=== PATIENT | male | born 1985 | race Two or more races ===

== ENCOUNTER 2023-04-07 14:28 | Outpatient (AMB) | payer OTHER, SELFPAY ==
--- NOTE | 2023-04-07 14:30 | MHC.OFFWIV ---
Intake Vital Signs 04/07/23 14:38 BMI Reason not done Patient refused/unable BP 122/76 Blood Pressure Location Lt brachial Position Sitting Pulse 74 Pulse Source Pulse Oximeter Temp 97.9 F Temp Source Temporal Artery Scan Pulse Oximetry (%) 98 Intake Visit Reasons: EP STD testing Intake Note: pt is here for c.o std screening Patient Tobacco Use Status: Never used Tobacco Allergies shellfish derived Allergy (Mild, Verified 04/07/23 14:38) Hives Do you need a note to return to daycare/school/sports/work: No HPI HPI Comments History of Present Illness Details This is a 37-year-old male who presented to the walk-in clinic requesting STD testing. Patient states he had exposure to a sexual partner who tested positive for chlamydia. Patient denies any symptoms including dysuria, penile discharge, testicular pain/swelling. PFSH Social History Patient Tobacco Use Status: Never used Tobacco Review of Systems Const All systems reviewed & are unremarkable except as noted in HPI and below Reports no additional complaints Eyes Reports no additional complaints ENT Reports no additional complaints Card Reports no additional complaints Resp Reports no additional complaints GI Reports no additional complaints Reports no additional complaints Musc Reports no additional complaints Skin/Breast Reports system reviewed and no additional complaints, except as documented Neuro Reports no additional complaints Psych Reports no additional complaints Endo Reports no additional complaints Heladio/Lymph Reports no additional complaints Aller/Immun Reports no additional complaints Physical Exam Const Other: Vital signs reviewed. Constitutional: Non-toxic appearing. No acute distress. Well-developed and well-nourished. HEENT: Normocephalic and atraumatic. Skin: Warm and dry. No rashes or lesions noted. Neck: Full and painless range of motion. No cervical lymphadenopathy. Cardio: Regular rate. No lower extremity edema. No JVD. Pulmonary: No respiratory distress. No accessory muscle usage. Gastrointestinal: Soft, nontender, and nondistended in all 4 quadrants. Musculoskeletal: Normal range of motion in joints throughout the body. No deformity or other signs of injury. Neuro: Alert and oriented x4. Cranial nerves 2-12 grossly intact. No focal deficits appreciated. Psych: Normal mood and affect. Assessment & Plan Assessment & Plan (1) Screen for STD (sexually transmitted disease): Code(s): Z11.3 - Encounter for screening for infections with a predominantly sexual mode of transmission Plan: This is a 37-year-old male who presented to the walk-in clinic requesting STD testing. Patient states he had known exposure to chlamydia with his most recent sexual partner. Patient sent a dirty urine for CT/NG testing. However, I will empirically treat patient with p.o. doxycycline mg twice daily x7 days given known/confirmed exposure to chlamydia. Patient was made aware to refrain from sexual interactions until he completes his treatment. Patient will be called with definitive results. Orders: Orders CT NG by PCR Today Z71.1 - Person with feared health complaint in whom no diagnosis is made Medications: New doxycycline hyclate 100 mg PO BID 14 caps 0RF Coding Level of Care Code Est Pt Level 3 (80768) Diagnoses Screen for STD (sexually transmitted disease) Z11.3
[2023-04-07 14:38] VITALS: BP 122/76; PULSE 74; TEMP 36.6; O2SAT 98
== END 2023-04-07 14:45 | disposition home or self-care (01) ==
PROVIDERS: Visit Provider Physician Assistant Medical
DX: Z11.3 Encounter for screening for infections with a predominantly sexual mode of transmission (principal)
CPT/HCPCS: 99051; 99213

== ENCOUNTER 2023-04-07 14:49 | Outpatient (REF) | payer OTHER, SELFPAY ==
[2023-04-08 03:00] LABS: CT PCR NOT DETECTED (Not Detect.); NG PCR NOT DETECTED (Not Detect.)
== END 2023-04-07 14:50 | disposition home or self-care (01) ==
LOC: HO.LAB 14:49
PROVIDERS: Visit Provider Physician Assistant Medical
DX: Z20.2 Contact with and (suspected) exposure to infections with a predominantly sexual mode of transmission (principal); Z71.1 Person with feared health complaint in whom no diagnosis is made
CPT/HCPCS: 0353U